=== PATIENT | female | born 2000 | race Caucasian/White ===

== ENCOUNTER 2022-10-02 15:44 | Emergency (ER) | payer MEDICAID, SELFPAY ==
[2022-10-02 15:45] VITALS: BP 133/81; PULSE 85; RESP 18; TEMP 36.2; O2SAT 98; BMI 27.4
--- NOTE | 2022-10-02 16:16 | CT_ITS ---
STUDY: CT Spine Cervical W/O Contrast Injection 10/02/2022 5:23 PM REASON FOR EXAM: Female, 22 years old. NECK PAIN Trauma HISTORY: NECK PAIN Trauma TECHNIQUE: High resolution transaxial imaging was performed without intravenous administration of contrast material. Sagittal and coronal images were reconstructed. Individualized dose optimization techniques were used for this CT. COMPARISON: None FINDINGS: Normal craniovertebral junction. Normal anterior atlantoaxial articulation. Normal odontoid process. There is reversal of the normal cervical lordosis. Normal vertebral bodies and posterior osseous elements. C2-3: Normal endplates. Normal disc height and morphology. Normal central canal and intervertebral neuroforamina. C3-4: Normal endplates. Normal disc height and morphology. Normal central canal and intervertebral neuroforamina. C4-5: Normal endplates. Normal disc height and morphology. Normal central canal and intervertebral neuroforamina. C5-6: Normal endplates. Normal disc height and morphology. Normal central canal and intervertebral neuroforamina. C6-7: Normal endplates. Normal disc height and morphology. Normal central canal and intervertebral neuroforamina. C7-T1: Normal endplates. Normal disc height and morphology. Normal central canal and intervertebral neuroforamina. Normal visualized soft tissue structures. CT/Spine Cervical without Contras IMPRESSION: (NOT LISTED IN ORDER OF SIGNIFICANCE) There is altered curvature of the normal cervical lordosis. This can suggest neck strain. Electronically Signed: Mehul Canseco MD at 17:25 EST ,
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
--- NOTE | 2022-10-02 16:55 | RAD_ITS ---
EXAM: XR THORACIC SPINE, 3 VIEWS CLINICAL INDICATION: Trauma TECHNIQUE: Frontal, lateral and swimmer''s views of the thoracic spine. This report was created using [employer] report [employer] technology. COMPARISON: None. FINDINGS: VERTEBRAE: Unremarkable. Preserved vertebral body height. No fracture. No spondylolisthesis. Preservation of the normal thoracic kyphosis. No significant facet arthropathy. DISC SPACES: Unremarkable. Disc spaces are maintained. RAD/Thoracic Spine 3 Views IMPRESSION: No evidence of thoracic spinal fracture or spondylolisthesis. Electronically Signed: Mehul Canseco MD at 17:43 EST ,
--- NOTE | 2022-10-02 16:55 | RAD_ITS ---
EXAM: XR STERNUM, 2 OR MORE VIEWS CLINICAL INDICATION: Trauma TECHNIQUE: Lateral and oblique views of the sternum. This report was created using [employer] report generation technology. COMPARISON: None. FINDINGS: BONES/JOINTS: No acute fracture. No subluxation. No sclerotic or destructive changes observed. SOFT TISSUES: Unremarkable. No soft tissue swelling or gas. No radiopaque foreign body. RAD/Sternum min 2 Views IMPRESSION: Negative sternum. Electronically Signed: Mehul Canseco MD at 17:41 EST ,
--- NOTE | 2022-10-02 16:55 | RAD_ITS ---
EXAM: XR CHEST, 1 VIEW CLINICAL INDICATION: Trauma TECHNIQUE: Frontal view of the chest. This report was created using [employer] report generation technology. COMPARISON: None. FINDINGS: LUNGS AND PLEURAL SPACES: Unremarkable. No consolidation or edema. No pneumothorax. No effusion. HEART: Unremarkable. Cardiac silhouette not enlarged. MEDIASTINUM: Central airways and mediastinal contour are unremarkable. BONES/JOINTS: Unremarkable. SOFT TISSUES: Unremarkable. RAD/Chest 1 View (Portable) IMPRESSION: No radiographic evidence of acute cardiopulmonary disease. Electronically Signed: Mehul Canseco MD at 17:41 EST ,
[2022-10-02 17:57] VITALS: BP 111/77; PULSE 71; RESP 18; O2SAT 99
== END 2022-10-02 18:31 | disposition home or self-care (01) ==
PROVIDERS: Emergency Provider Emergency Medicine; Visit Provider Emergency Medicine
DX: S20.20XA Contusion of thorax, unspecified, initial encounter (principal); S16.1XXA Strain of muscle, fascia and tendon at neck level, initial encounter; V43.51XA Car driver injured in collision with sport utility vehicle in traffic accident, initial encounter
CPT/HCPCS: 71045; 71120; 72072; 72125; 99284

== ENCOUNTER → 2023-02-05 | Outpatient (CLI) | payer BC, MEDICAID, SELFPAY ==
[2023-02-05 15:34] LABS: Bacteria 0 SEEN /hpf (None Seen); Mucous, Urine 0 SEEN /hpf (<or=2+); Red Blood Cells-Urine 0 SEEN /hpf (0-5); White Blood Cells 0 SEEN /hpf (0-5)
[2023-02-05 16:05] LABS: Color, Urine Yellow (Yellow); Glucose, Dipstick Normal (Normal); Ketone-Dipstick Negative (Negative); Leukocyte Esterase-Dipstick Negative /ul (Negative); Nitrite-Dipstick Negative (Negative); Occult Blood-Urine 10 /ul (Negative); Protein-Dipstick Negative (Negative); Urine Bilirubin Dipstick Negative (Negative); Urine Clarity Clear (Clear); Urine Urobilinogen Normal (Normal); Urine pH 6.5 (5.0 - 8.0)
[2023-02-05 16:41] LABS: Squamous Epithelial Cells - UA 0-5 SEEN /hpf (5-10)
== END | disposition home or self-care (01) ==
LOC: LABSPEC 14:57
PROVIDERS: Referring Provider Physician Assistant Surgical; Visit Provider Physician Assistant Surgical
DX: R39.15 Urgency of urination (principal)
CPT/HCPCS: 81001; 87086

== ENCOUNTER → 2023-04-17 | Outpatient (CLI) | payer MEDICAID, SELFPAY ==
--- NOTE | 2023-04-17 12:45 | MRI_ITS ---
EXAM: MR LEFT LOWER EXTREMITY WITHOUT INTRAVENOUS CONTRAST, FOOT CLINICAL INDICATION: pain ACROSS PROXIMAL METATARSALS TECHNIQUE: Multiplanar and multisequence MR images of the left foot without intravenous contrast. COMPARISON: X-ray foot March 28, 2023 FINDINGS: LIGAMENTS: MEDIAL COLLATERAL: Unremarkable. Intact. LATERAL COLLATERAL: Unremarkable. Intact. LISFRANC: Unremarkable. Intact. TENDONS: FLEXOR: Unremarkable. Intact. EXTENSOR: Unremarkable. Intact. PERONEAL: Unremarkable. Intact. TIBIALIS ANTERIOR: Unremarkable. Intact. TIBIALIS POSTERIOR: Unremarkable. Intact. MUSCLES: Muscles are normal. FLUID: Unremarkable. No joint effusion. PLANTAR FASCIA: Unremarkable. Intact. BONES/JOINTS: Small amount of fluid at the first metatarsophalangeal joint without synovitis. Joint spaces are maintained with no significant arthritic changes. Normal forefoot alignment. No fracture. No bone marrow edema. No joint effusion. OTHER SOFT TISSUES: Lobulated soft tissue ganglion cyst along the dorsal aspect of the there/metatarsal bases. The cyst measures 1.3 x 0.9 cm. Tendons are unremarkable. OTHER FINDINGS: Plantar aponeurosis is unremarkable. Neurovascular structures are unremarkable. MRI/Lower Ext/No Jt/w/o IMPRESSION: 1. 1.3 cm soft tissue ganglion cyst along the dorsal aspect of the there/metatarsal bases. 2. Small amount of fluid at the first metatarsophalangeal joint without synovitis. 3. No other significant internal derangement Electronically Signed: Rolando Darby MD at 22:43 EDT Reading Location ID and State: [facility] / [place] Tel , Service support ,
== END | disposition home or self-care (01) ==
LOC: MRI 12:38
DX: M79.672 Pain in left foot (principal)
CPT/HCPCS: 73718

== ENCOUNTER 2023-11-17 13:29 | Emergency (ER) | payer OTHER, MEDICAID, SELFPAY ==
[2023-11-17 13:30] VITALS: BP 132/67; PULSE 87; RESP 16; TEMP 36; O2SAT 97
[2023-11-17 13:31] VITALS: BP 132/67; PULSE 87; RESP 16; TEMP 36; O2SAT 97; BMI 30.7
[2023-11-17 13:33] VITALS: BP 132/67; PULSE 87; RESP 16; TEMP 36; O2SAT 97
[2023-11-17 13:52] LABS: Bacteria 0 SEEN /hpf (None Seen); Mucous, Urine 0 SEEN /hpf (<or=2+); Squamous Epithelial Cells - UA 0 SEEN /hpf (5-10); White Blood Cells 0 SEEN /hpf (0-5)
--- NOTE | 2023-11-17 14:02 | ED.VIS.FEGU ---
HPI HPI - Female History of Present Illness Chief Complaint: Complaint Detail of Chief Complaint: Urinary frequency and urgency. Mild dysuria. Informant: patient Associated Symptoms Associated Symptoms: Positive for Dysuria, Frequency and Urgency Narrative Narrative: 23-year-old female no seen past medical history. States on Friday she started nausea and vomiting. Very limited if any loose stools. Fever as high as 102 with chills. And she is having dysuria with urgency and frequency. No one else at home is ill. She lives with her boyfriend he does not have any symptoms. Prior similar symptoms: No Recent Illness/Hospitalization: No PFSH PFS Medical History Anxiety Home Medications naproxen 500 mg tablet 500 mg PO BID #14 tabs 10/02/22 [Rx Last Taken Unknown] cranberry 500 mg capsule 500 mg PO BID 02/05/23 [History Last Taken Unknown] magnesium chloride 64 mg (magnesium chloride) tablet,delayed release 64 mg PO DAILY 02/05/23 [History Last Taken Unknown] multivitamin 1 tab PO DAILY 02/05/23 [History Last Taken Unknown] turmeric root extract 500 mg capsule 500 mg PO DAILY 02/05/23 [History Last Taken Unknown] ondansetron 4 mg disintegrating tablet 4 mg PO Q6H PRN nausea and vomiting #7 tabs 11/17/23 [Rx Last Taken Unknown] Allergy/AdvReac Type Severity Reaction Status Date / Time trazodone Allergy Severe Anaphylaxis Verified 11/17/23 13:34 Surgical History H/O dilation and curettage (~09/2021) Social History Smoking Status: Never smoker ROS ROS ED ROS Narrative Fever. Chills. Dysuria and frequency. Nausea and vomiting. Review of Systems ROS Unobtainable: Denies due to encephalopathy Constitutional Constitutional ED: Reports chills and fever(s) Eyes Eyes: Denies blurry vision ENT ENT ED: Denies ear pain Cardiovascular Cardiovascular: Denies chest pain or palpitations Respiratory/Chest Respiratory/Chest: Denies cough or dyspnea Gastrointestinal Gastrointestinal: Reports nausea and vomiting; Denies abdominal pain, constipation, diarrhea or melena Genitourinary Genitourinary ED: Reports dysuria and urinary frequency; Denies hematuria Musculoskeletal Musculoskeletal: Denies arthralgias or myalgias Integumentary Denies abscess, Abrasions or rash Neurologic Neurologic: Denies headache(s) Psychiatric Psychiatric: Denies anxiety or depression Endocrine Endocrinology: Denies heat intolerance Hematologic/Lymphatic Hematologic/Lymphatic: Denies easy bleeding, easy bruising or lymphadenopathy Allergic/Immunologic Allergic/Immunologic ED: Denies mouth swelling, tongue swelling or urticaria EXAM Physical Exam Narrative Exam Narrative: 23-year-old female no acute distress vital signs stable afebrile. HEENT exam unremarkable. Moist membranes. Dry reactive light. Normal speech. Neck nontender. Lungs clear to auscultation bilaterally. Heart regular rhythm rate about 85 no murmur. Chest wall and ribs nontender. Abdomen soft nontender. Moving all 4 extremities. Nontender. No edema. No rash. Back complaining of bilateral CVA tenderness not really reproducible. Spine nontender. No redness or warmth. No discoloration. No bruising. Neurologically she is awake and alert with no focal motor deficits. Const Vital Signs: 11/17/23 13:30 11/17/23 13:31 11/17/23 13:33 Temperature 96.8 F L 96.8 F L 96.8 F L Temperature Source Temporal Temporal Temporal Pulse Rate 87 87 87 Respiratory Rate 16 16 16 Blood Pressure 132/67 H 132/67 H 132/67 H Blood Pressure Mean 88 88 88 Pulse Ox 97 97 97 Oxygen Delivery Method Room Air Room Air Room Air Positive well nourished and well developed; Negative for obese, cachectic, contractures or unkempt General Appearance ED: well developed and NAD; Negative for unkempt, cachectic, contractures or pallor Nutritional Appearance: Negative for cachectic or obese HEENT Reports moist mucous membranes; Denies dry mucous membranes Negative for trauma or tenderness Mouth ED: No dry mucous membranes Mouth: No dry mucous membranes Eyes PERRL and EOMs intact bilaterally General Eye ED: Negative for pale conjunctiva or scleral icterus Neck no lymphadenopathy, supple and no JVD General: Negative for other Lymph Lymphatic: Negative for other Chest Wall inspection of chest normal and palpation of chest normal Resp normal respiratory effort and clear to auscultation bilaterally Effort and Inspection: Negative for pain with movement Auscultation: Negative for rales, rhonchi, wheezes or diminished lung sounds Cardio regular rate, regular rhythm, S1 normal heart sound, no murmurs and no JVD Rate: Negative for bradycardia or tachycardic Rhythm: Negative for abnormal rhythm GI normal to inspection, nondistended, normoactive bowel sounds, soft to palpation, non-tender and no masses Auscultation: normoactive bowel sounds Palpation: Negative for tender, guarding, rigid, hepatomegaly, splenomegaly, mass or other Back/Spine no CVA tenderness General Back: Negative for CVA tenderness Cervical Spine: Negative for cervical spine tenderness Thoracic Spine / Upper Back: Negative for thoracic spinal tenderness Lumbar Spine / Lower Back: Negative for lumbar spinal tenderness Sacrum: Negative for other Extremity normal to inspection and full ROM General Extremety ED: Negative for edema, tenderness or other findings General Extremity: Negative for edema or other findings Neuro oriented x3 and CN's II-XII intact bilaterally Sensorium / Orientation: alert, oriented to person, oriented to place and oriented to time; Negative for confused, lethargic or stuporous Motor Exam: strength 5/5 throughout Psych mental status grossly normal Appearance: Negative for unkempt Attitude: No agitated Speech: No other Mood & Affect: Negative for depressed, anxious or tearful Skin no rashes or lesions noted and no wounds General Skin Exam: Negative for jaundice or pallor Rashes: No rashes noted Trauma: Negative for other MDM MDM MDM Narrative Medical decision making narrative: 23-year-old female with dysuria and urgency with nausea and vomiting fever and chills. UTI, pyelonephritis versus viral syndrome. IV fluids. P.o. Tylenol. Screening labs UA and urine test. Repeat exam at 3:42 PM patient doing well. Repeat exam is normal and unchanged. Abdomen is completely nontender. Lungs are completely clear. Clinically she looks well and is feeling better. I explained most likely is a viral syndrome. There is no signs as being a UTI. She is comfortable being discharged home. She will be written a prescription for Zofran but says she does not need it at this time so I will just give her a hard prescription. She has a follow-up if she is not improving and I will assign her to a primary care physician. She knows to return if she is feeling worse. History & Record Review Discussion w/independent historian: Patient Additional record(s) reviewed:: Prior inpatient record, Prior outpatient record and Prior ED visit Lab Data Attestation: I reviewed the patient's lab results. Lab results narrative: CBC is normal. White count 8.3. H&H of 14 and 42. Platelets 258. BMP normal. Gap 6. Normal BUN is 9 creatinine 0.6. Glucose 93 UA is normal. Serum test negative. Labs: Laboratory Results - last 24 hr 11/17/23 11/17/23 13:40 14:21 WBC 8.3 RBC 5.06 Hgb 14.0 Hct 42.6 MCV 84.2 MCH 27.7 MCHC 32.9 RDW Std Deviation 38.0 RDW Coeff of Polo 12.5 Plt Count 258 MPV 10.4 Immature Gran % (Auto) 0.400 Neut % (Auto) 54.4 Lymph % (Auto) 36.5 Caswell % (Auto) 7.5 Eos % (Auto) 0.8 Baso % (Auto) 0.4 Absolute Neuts (auto) 4.5 Absolute Lymphs (auto) 3.03 Nucleated RBC % 0 Sodium 142 Potassium 4.0 Chloride 109 H Carbon Dioxide 27.0 Anion Gap 6 BUN 9 Creatinine 0.63 Estim Creat Clear Calc 150.96 Est GFR (MDRD) Af Amer 147 Est GFR (MDRD) Non-Af 121 BUN/Creatinine Ratio 14.2 Glucose 93 Calcium 9.0 Urine Color Straw Urine Clarity Clear Urine pH 6.5 Ur Specific Tucker 1.005 Urine Protein Negative Urine Glucose (UA) Normal Urine Ketones Negative Urine Occult Blood 10 H Urine Nitrite Negative Urine Bilirubin Negative Urine Urobilinogen Normal Ur Leukocyte Esterase Negative Urine RBC 0-5 SEEN Urine WBC 0 SEEN Ur Squamous Epith Cells 0 SEEN Urine Bacteria 0 SEEN Urine Mucus 0 SEEN Urine Test Negative Discharge Plan Triage Chief Complaint: Complaint ED Provider: Evin Tom Dx/Rx/DC Orders Clinical Impression: Fever, Viral syndrome, Nausea & vomiting Instructions: ED Viral Syndrome (Adult), ED Vomiting (Adult) Prescriptions: New ondansetron 4 mg tablet,disintegrating 4 mg PO Q6H PRN (Reason: nausea and vomiting) Qty: 7 0RF No Action magnesium chloride 64 mg tablet,delayed release (DR/EC) 64 mg PO DAILY turmeric root extract 500 mg capsule 500 mg PO DAILY cranberry 500 mg capsule 500 mg PO BID Rx Instructions: administer with meals multivitamin Tablet 1 tab PO DAILY naproxen 500 mg tablet 500 mg PO BID Qty: 14 0RF Primary Care Provider: Care Physician,No Primary Referrals: Aleksey Ortega MD [Med Staff - Door Liner] - 3-5 Days if not improving Care Physician,No Primary [Primary Care Provider] - Activity Restrictions/Additional Instructions: No signs of any bacterial infection. No signs of urinary tract infection. Most likely a virus. Plenty of fluids and rest. Increase diet slowly as tolerated. Zofran only if needed for nausea and vomiting. If you are not feeling sick to her stomach or your nausea vomiting or you need to get it filled. Follow-up if not improving or return if worse. Most likely in the next 24 to 72 hours generally feeling much better and back to your baseline soon. Disposition Disposition: Home, Self Care
[2023-11-17] MEDS: Acetaminophen 325 MG Tablet 650 MG PO (14:18)
[2023-11-17] MEDS: 0.9% Normal Saline (1000mL) 1,000 ML 1000 ML IV (14:18)
[2023-11-17 14:32] LABS: Absolute Lymphocyte Count 3.03 X10^3/uL (0.83-4.51); Absolute Neutrophil Count 4.5 X10^3/uL (2.0-7.7); Basophil# 0.03 X10^3/uL; Basophil% 0.4 % (0-1); Eosinophil# 0.07 X10^3/uL; Eosinophils% 0.8 % (0-5); Hematocrit 42.6 % (37-47); Lymphocyte # 3.03 X10^3/ul (0.83-4.51); Lymphocyte % 36.5 % (19-41); Mean Corp Hgb Conc 32.9 g/dL (32-36); Mean Corpuscular Hgb 27.7 pg (27.0-32.0); Mean Corpuscular Volume 84.2 fL (81-99); Mean Platelet Vol. 10.4 fl (6.2-12.0); Monocyte# 0.62 X10^3/uL; Monocyte% 7.5 % (0-10); NRBC Flagged by Analyzer 0 % (0-5); Neutrophil # 4.52 X10^3/uL (2.7-7.7); Neutrophil % 54.4 % (47-70); Platelet Count 258 K/mm3 (150-450); RBC Distribution Width CV 12.5 % (11.6-14.6); Red Blood Count 5.06 M/mm3 (4.2-5.4); White Blood Count 8.3 K/mm3 (4.4-11.0)
[2023-11-17 14:33] LABS: Color, Urine Straw (Yellow); Glucose, Dipstick Normal (Normal); Ketone-Dipstick Negative (Negative); Leukocyte Esterase-Dipstick Negative /ul (Negative); Nitrite-Dipstick Negative (Negative); Occult Blood-Urine 10 /ul (Negative); Protein-Dipstick Negative (Negative); Specific Gravity, Urine 1.005 (1.002-1.030); Urine Bilirubin Dipstick Negative (Negative); Urine Clarity Clear (Clear); Urine Urobilinogen Normal (Normal); Urine pH 6.5 (5.0 - 8.0)
[2023-11-17 14:42] LABS: Anion Gap 6 (5-15); BUN 9 mg/dL (7-18); BUN/Creat Ratio 14.2 RATIO (10-20); Chloride 109 mmol/L (98-107); Creatinine, Serum 0.63 mg/dL (0.55-1.02); EST Glomerular Filtration Rate 121 mL/min (>60); Est Glom Filt Rate - Afr Amer 147 mL/min (>60); Estimated Creatinine Clearance 150.96 ml/min; Glucose 93 mg/dL (74-106); Sodium Level 142 mmol/L (136-145)
[2023-11-17 14:48] LABS: Internal QC Validated? YES +Cl - CLEAR BKGD; Pregnancy, Urine Negative Negative; Record Kit Lot#,Urine Preg HCG0000718086; Red Blood Cells-Urine 0-5 SEEN /hpf (0-5)
[2023-11-17 16:29] VITALS: BP 106/79; PULSE 69; RESP 18; TEMP 37.1; O2SAT 100
== END 2023-11-17 16:32 | disposition home or self-care (01) ==
PROVIDERS: Emergency Provider Emergency Medicine; Visit Provider Emergency Medicine
DX: B34.9 Viral infection, unspecified (principal); R11.2 Nausea with vomiting, unspecified; R50.9 Fever, unspecified
CPT/HCPCS: 80048; 81001; 81025; 85025; 96360; 99283; J7030; A4216